=== PATIENT | female | born 1960 | race Caucasian/White ===

== ENCOUNTER → 2017-07-07 | Outpatient (CLI) | payer OTHER ==
--- NOTE | 2017-07-07 15:36 | RAD ---
DATE: 07/07/2017 EXAM: MAMMO DINA SCREENING BILATERAL Bilateral digital screening mammography to include digital breast tomosynthesis (3D mammography) HISTORY: Screening study. COMPARISON: 12/17/2014 This study was interpreted with the benefit of Computerized Aided Detection (CAD). The breast parenchyma shows scattered fibroglandular densities. Breast parenchyma level B. FINDINGS: Digital MLO and CC mammograms of both breasts were obtained. Additionally digital breast tomosynthesis (3D mammography) images of both breasts in the MLO and CC projections were performed. Comparison study is dated 12/17/2014. The breast parenchyma is composed of scattered fibroglandular densities which can obscure a lesion on mammography (breast density code B). No spiculated mass is seen. No malignant appearing calcification or area of architectural distortion is noted. Benign-appearing calcifications are seen within both breasts. Digital breast tomosynthesis images demonstrate no spiculated mass or malignant appearing calcification. Since the previous examination there has been no significant interval change. IMPRESSION: BI-RADS Category 1, negative. There is no mammographic evidence of malignancy. Routine yearly screening mammography is recommended for follow-up. BI-RADS CATEGORY: 1 NEGATIVE RECOMMENDED FOLLOW-UP: 12M 12 MONTH FOLLOW-UP PQRS compliance statement: Patient information was entered into a reminder system with a target due date 07/07/2018 for the next mammogram. Mammography is a sensitive method for finding small breast cancers, but it does not detect them all and is not a substitute for careful clinical examination. A negative mammogram does not negate a clinically suspicious finding and should not result in delay in biopsying a clinically suspicious abnormality. "Our facility is accredited by the [employer] Mammography Program."
== END | disposition home or self-care (01) ==
LOC: MAMMO 14:06
PROVIDERS: ATTEND Specialist
DX: Z12.31 Encounter for screening mammogram for malignant neoplasm of breast (principal)
CPT/HCPCS: 77063; G0202; 77067

== ENCOUNTER 2017-12-20 14:23 | Emergency (ER) | payer OTHER ==
[~2017-12-20] VITALS: Ht 152.4 cm; Wt 89.4 kg
[2017-12-20] MEDS ORDERED: IV NORMAL SALINE 1,000ML 1,000 ML IV SCH (15:00)
[2017-12-20] MEDS ORDERED: KETOROLAC 30 MG/ML VIAL. IV ONE (15:00)
[2017-12-20 15:01] LABS: BASO # 0.1 x10^3/uL (0.0-0.2); BASO % 1 % (0-3); EOS % 0 % (0-3); HEMATOCRIT 45.5 % (36.0-47.0); LYMPH # 0.8 x10^3/uL (1.0-4.8); LYMPH % 6 % (24-48); MEAN CORPUSCULAR HEMOGLOBIN 29 pg (25-35); MEAN CORPUSCULAR HGB CONC 33 g/dL (31-37); MEAN CORPUSCULAR VOLUME 88 fL (79-100); MONO # 0.9 x10^3/uL (0.0-1.1); MONO % 6 % (0-9); NEUT # 13.3 x10^3uL (1.8-7.7); NEUT % 88 % (31-73); PLATELET COUNT 300 x10^3/uL (140-400); RED CELL DISTRIBUTION WIDTH 13.6 % (11.5-14.5); WHITE BLOOD COUNT 15.2 x10^3/uL (4.0-11.0)
[2017-12-20 15:14] LABS: ALBUMIN 3.5 g/dL (3.4-5.0); ALBUMIN/GLOBULIN RATIO 0.9 (1.0-1.7); CREATININE 1.2 mg/dL (0.6-1.0); GFR 46.1; POTASSIUM 4.2 mmol/L (3.5-5.1); TOTAL BILIRUBIN 0.9 mg/dL (0.2-1.0); TOTAL PROTEIN 7.4 g/dL (6.4-8.2)
[2017-12-20 15:21] LABS: % BANDS 14 % (0-9); % LYMPHS 1 % (24-48); % MONOS 7 % (0-10); % SEGS 78 % (35-66)
[2017-12-20 15:23] LABS: PLT ESTIMATE ADEQUATE (ADEQUATE)
[2017-12-20 15:24] LABS: TOXIC GRANULATION SLIGHT; TOXIC VACUOLATION SLIGHT
[2017-12-20] MEDS ORDERED: IOHEXOL 240 MG/ML 50ML VIAL. ONE (15:43)
--- NOTE | 2017-12-20 15:52 | PHYS DOC ---
Past History Past Surgical History: Hysterectomy Smoking: Non-smoker Adult General Chief Complaint Chief Complaint: PELVIC PAIN HPI HPI 57-year-old female patient complaining of sharp pelvic. Therefore 2 AM as a constant pain with radiation to back that gradually getting worse. Patient rated her pain 8/10 and states the pain getting worse with movement. Patient complaining of nausea and anorexia without vomiting, diarrhea, fever and chills , urinary symptom. Patient states she had a bowel movement at noon without change of her pain and had flatus after that. Patient was seen by her primary care physician and had unremarkable pelvic and rectal exam and sent to ER for evaluation. Review of Systems Review of Systems Constitutional: Denies fever or chills [] Eyes: Denies change in visual acuity, redness, or eye pain [] HENT: Denies nasal congestion or sore throat [] Respiratory: Denies cough or shortness of breath [] Cardiovascular: No additional information not addressed in HPI [] GI: Reports abdominal pain, denies nausea, vomiting, bloody stools or diarrhea [ ] : Denies dysuria or hematuria [] Musculoskeletal: Denies back pain or joint pain [] Integument: Denies rash or skin lesions [] Neurologic: Denies headache, focal weakness or sensory changes [] Endocrine: Denies polyuria or polydipsia [] All other systems were reviewed and found to be within normal limits, except as documented in this note. Current Medications Current Medications Current Medications Medications (Trade) Dose Ordered Sig/Catrachito Start Time Stop Time Status Last Admin Dose Admin Ketorolac Tromethamine (Toradol) 30 mg 1X ONCE 12/20/17 15:00 12/20/17 15:01 DC 12/20/17 14:56 30 MG Sodium Chloride 1,000 ml @ 100 mls/hr Q10H 12/20/17 15:00 12/21/17 00:59 12/20/17 14:56 100 MLS/HR Allergies Allergies Allergies Coded Allergies Type Severity Reaction Last Updated Verified No Known Drug Allergies 12/20/17 No Physical Exam Physical Exam Constitutional: Well developed, well nourished, mild distress, non-toxic appearance. [] HENT: Normocephalic, atraumatic, bilateral external ears normal, oropharynx moist, no oral exudates, nose normal. [] Eyes: PERRLA, EOMI, conjunctiva normal, no discharge. [] Neck: Normal range of motion, no tenderness, supple, no stridor. [] Cardiovascular:Heart rate regular rhythm, no murmur [] Lungs & Thorax: Bilateral breath sounds clear to auscultation [] Abdomen: Bowel sounds normal, soft, right lower quadrant and suprapubic tenderness and guarding, no masses, no pulsatile masses. [] Skin: Warm, dry, no erythema, no rash. [] Back: No tenderness, no CVA tenderness. [] Extremities: No tenderness, no cyanosis, no clubbing, ROM intact, no edema. [] Neurologic: Alert and oriented X 3, normal motor function, normal sensory function, no focal deficits noted. [] Psychologic: Affect normal, judgement normal, mood normal. [] Current Patient Data Lab Results Laboratory Tests Test 12/20/17 14:48 White Blood Count 15.2 x10^3/uL (4.0-11.0) H Red Blood Count 5.20 x10^6/uL (3.50-5.40) Hemoglobin 15.0 g/dL (12.0-15.5) Hematocrit 45.5 % (36.0-47.0) Mean Corpuscular Volume 88 fL (79-100) Mean Corpuscular Hemoglobin 29 pg (25-35) Mean Corpuscular Hemoglobin Concent 33 g/dL (31-37) Red Cell Distribution Width 13.6 % (11.5-14.5) Platelet Count 300 x10^3/uL (140-400) Neutrophils (%) (Auto) 88 % (31-73) H Lymphocytes (%) (Auto) 6 % (24-48) L Monocytes (%) (Auto) 6 % (0-9) Eosinophils (%) (Auto) 0 % (0-3) Basophils (%) (Auto) 1 % (0-3) Neutrophils # (Auto) 13.3 x10^3uL (1.8-7.7) H Lymphocytes # (Auto) 0.8 x10^3/uL (1.0-4.8) L Monocytes # (Auto) 0.9 x10^3/uL (0.0-1.1) Eosinophils # (Auto) 0.0 x10^3/uL (0.0-0.7) Basophils # (Auto) 0.1 x10^3/uL (0.0-0.2) Segmented Neutrophils % 78 % (35-66) H Band Neutrophils % 14 % (0-9) H Lymphocytes % 1 % (24-48) L Monocytes % 7 % (0-10) Toxic Granulation Slight Toxic Vacuolation Slight Platelet Estimate Adequate (ADEQUATE) Large Platelets Occ Sodium Level 138 mmol/L (136-145) Potassium Level 4.2 mmol/L (3.5-5.1) Chloride Level 101 mmol/L (98-107) Carbon Dioxide Level 26 mmol/L (21-32) Anion Gap 11 (6-14) Blood Urea Nitrogen 15 mg/dL (7-20) Creatinine 1.2 mg/dL (0.6-1.0) H Estimated GFR (Cockcroft-Gault) 46.1 BUN/Creatinine Ratio 13 (6-20) Glucose Level 232 mg/dL (70-99) H Calcium Level 9.0 mg/dL (8.5-10.1) Total Bilirubin 0.9 mg/dL (0.2-1.0) Aspartate Amino Transferase (AST) 34 U/L (15-37) Alanine Aminotransferase (ALT) 55 U/L (14-59) Alkaline Phosphatase 123 U/L (46-116) H Total Protein 7.4 g/dL (6.4-8.2) Albumin 3.5 g/dL (3.4-5.0) Albumin/Globulin Ratio 0.9 (1.0-1.7) L Lipase 142 U/L (73-393) EKG EKG [] Radiology/Procedures Radiology/Procedures [] Course & Med Decision Making Course & Med Decision Making Pertinent Labs and Imaging studies reviewed. (See chart for details) Evaluation of patient in ER showed 57-year-old female patient with sudden onset of abdominal pain since this morning as a constant pain with nausea and anorexia. Patient had lower abdominal tenderness and rebound tenderness. Patient had leukocytosis and elevation of blood sugar without history of diabetes. CT of abdomen and pelvis showed small bowel obstruction with transition zone in the right lower quadrant. On-call surgeon at [facility] Dr Yoon was consulted at 1748 and recommended to transfer patient to [facility]. On-call hospitalist Dr. Hernández accepted transfer at 1755. Patient and her informed about plan of care and agreed with plan of care. [] Dragon Disclaimer Dragon Disclaimer This electronic medical record was generated, in whole or in part, using a voice recognition dictation system. Departure Departure: Impression: Primary Impression: Small bowel obstruction Additional Impressions: Hyperglycemia Abdominal pain Leukocytosis Disposition: XF [facility] ([facility] at 1755) Referrals: MAILE THOMPSON MD (PCP) Problem Qualifiers JOVITA ROSADO MD Dec 20, 2017 15:52
[2017-12-20] MEDS ORDERED: IOHEXOL 240 MG/ML 50ML VIAL. PO ONE (16:15)
[2017-12-20] MEDS ORDERED: IOHEXOL 300 MG/ML 75 ML VIAL. IV ONE (16:15)
[2017-12-20] MEDS ORDERED: CONTRAST GIVEN MC PRN (16:30)
[2017-12-20 16:49] LABS: AMORPHOUS SEDIMENT,UR PRESENT /HPF; BACTERIA,URINE FEW /HPF (0-FEW); BILIRUBIN,URINE NEG (NEG); CLARITY,URINE CLEAR; COLOR,URINE YELLOW; GLUCOSE,URINE NEG (NEG); NITRITE,URINE NEG (NEG); SQUAMOUS EPITHELIAL CELL,UR OCC /LPF; UROBILINOGEN,URINE 0.2 mg/dL (0.2 mg/dL)
--- NOTE | 2017-12-20 17:46 | RAD ---
Examination: CT of the abdomen pelvis with oral and IV contrast HISTORY: History of abdominal pain COMPARISON: None available TECHNIQUE: Axial CT images of the abdomen pelvis were performed with oral and IV contrast. Coronal and sagittal reformats are performed Exposure: One or more of the following individualized dose reduction techniques were utilized for this examination: 1. Automated exposure control 2. Adjustment of the mA and/or kV according to patient size 3. Use of iterative reconstruction technique FINDINGS: The bibasilar lungs are clear. No evidence of free air identified in the abdomen. There is diffuse reticular dimension noted throughout the liver likely steatosis The gallbladder is mildly distended The visualized spleen, adrenals grossly appears unremarkable The stomach is mildly distended. There are multiple dilated small bowel loops identified with the transition point in the right lower quadrant of the abdomen best visualized on coronal series 3 image 41. On series 2 image #67 there is a linear hyperdensity identified extending and abutting and possibly piercing the small bowel wall , could be a foreign body such as a chicken bone or fish bone or suture ( if there is history of surgery). However no extraluminal air visualized. The dilated small bowel loops are fluid distended measuring up to 2.8 cm. The distal small bowel loops appear collapsed Feces and gas noted in the colon The appendix is normal. Multiple sigmoid colon diverticulosis. Urinary bladder is mildly distended The bilateral kidneys enhance symmetrically. Moderate degenerative changes lumbar spine. There is mild anterolisthesis of L4 on L5. There is minimal retrolisthesis of L1 on L2. Impression: 1. Multiple dilated small bowel loops likely small bowel obstruction identified with a transition point in the right lower quadrant of the abdomen . On series 2 image #67 there is a linear hyperdensity identified extending and abutting and possibly piercing the small bowel wall , could be a foreign body such as a chicken bone or fish bone or suture ( if there is history of surgery). This appears to be the site of obstruction. However no extraluminal air visualized. 2. Multiple sigmoid colon diverticulosis. 3. Hepatic steatosis. Dr. Paez at [facility] was informed at time of dictation. Electronically signed by: Dany Bains MD (12/20/2017 5:43 PM) [facility]
[2017-12-20] MEDS ORDERED: MORPHINE SULFATE 4 MG/ML DISP.SYRIN. IV ONE (18:30)
[2017-12-20 19:12] VITALS: BP 125/81
== END 2017-12-20 20:05 | disposition home or self-care (01) ==
LOC: ER 14:23
DX: K56.699 Other intestinal obstruction unspecified as to partial versus complete obstruction (principal); R73.9 Hyperglycemia, unspecified; D72.829 Elevated white blood cell count, unspecified; Z90.710 Acquired absence of both cervix and uterus
CPT/HCPCS: 36415; 74177; 80053; 81001; 83690; 85007; 85025; 96361; 96374; 96375; 99285; J1885; J2270; Q9967; J7030

== ENCOUNTER → 2018-06-07 | Outpatient (CLI) | payer OTHER ==
[~2018-06-07] MED LIST: IOHEXOL 240 MG/ML 50ML VIAL. ONE; IOHEXOL 300 MG/ML 75 ML VIAL. IV ONE
--- NOTE | 2018-06-07 13:45 | RAD ---
EXAM: Abdomen and pelvis CT with intravenous contrast. HISTORY: Pain and cramping. TECHNIQUE: Computed tomographic images of the abdomen and pelvis were obtained following the administration of 75 cc Omnipaque 300 intravenous contrast. Multiplanar reformatting was performed. *One or more of the following individualized dose reduction techniques were utilized for this examination: 1. Automated exposure control. 2. Adjustment of the mA and/or kV according to patient size. 3. Use of iterative reconstruction technique. COMPARISON: 12/20/2017. FINDINGS: Evaluation of the lower thorax demonstrates no infiltrate or pleural effusion. The heart is normal in size. There is a 2.3 cm enhancing lesion within the hepatic dome. The gallbladder is unremarkable. There is suspected slight hepatic steatosis. There is a 10 mm mm hyperdense focus along the pancreatic head, likely due to radiodense material within a proximal duodenal diverticulum rather than pancreatic calcification. The spleen and adrenal glands are unremarkable. There is a suspected right extrarenal pelvis. There is no obstructive uropathy. There is no appendicitis. There is circumferential mucosal thickening involving the colon from the cecum to the mid transverse colon. There is surrounding pericolonic stranding. There are multiple enlarged pericecal lymph nodes, the largest of which measures 10 mm. There is sigmoid diverticulosis without convincing diverticulitis. The uterus is surgically absent. There is an infraumbilical fat-containing hernia extending into a ventral abdominal wall pannus. The hernia defect measures 6.5 cm and the hernia sac measures approximately 10.4 cm. There is grade 1 anterolisthesis of L4 on L5. There is severe degenerative endplate remodeling at L1-L2. There is superior endplate depression with Schmorl's node at L2. There are additional degenerative changes involving the lower and mid thoracic spine. There is no suspicious osseous lesion. IMPRESSION: 1. Acute colitis extending from the cecum to the mid transverse colon. The differential includes both infectious colitis as well as inflammatory bowel disease. There is several suspected reactive lymph nodes surrounding the cecum. 2. Stable enhancing lesion within the hepatic dome. This can be further assessed with a liver sonogram. 3. Distal colonic diverticulosis. 4. Fat-containing inferior ventral abdominal wall hernia. This is new compared to the study dated 12/20/2017. 5. Suspected slight hepatic steatosis. Electronically signed by: Lacey Nichols MD (06/07/2018 1:42 PM) [facility]
== END | disposition home or self-care (01) ==
LOC: CT 12:09
PROVIDERS: ATTEND Specialist
DX: K52.89 Other specified noninfective gastroenteritis and colitis (principal); K57.30 Diverticulosis of large intestine without perforation or abscess without bleeding; K43.9 Ventral hernia without obstruction or gangrene; K76.89 Other specified diseases of liver; E11.9 Type 2 diabetes mellitus without complications; Z90.710 Acquired absence of both cervix and uterus
CPT/HCPCS: 74177; Q9966; Q9967

== ENCOUNTER 2019-06-11 16:47 | Emergency (ER) | payer OTHER ==
[~2019-06-11] VITALS: Ht 152.4 cm; Wt 89.4 kg
--- NOTE | 2019-06-11 17:22 | PHYS DOC ---
Past History Past Medical History: Anxiety, Depression, Diabetes, GERD, Other (STEVEN HUSTON DO) Past Surgical History: Hysterectomy, Other Additional Past Surgical Histo: bilateral knee replacement, colon resection (STEVEN HUSTON DO) Smoking: Non-smoker Alcohol Use: None Drug Use: None (STEVEN HUSTON DO) Adult General Chief Complaint Chief Complaint: ANKLE PROBLEM HPI HPI Patient is a 59-year-old female presents with left ankle pain. Patient tripped and fell down approximately 6 steps at home that she was carrying a laundry basket. No loss of consciousness, no head injury. Increased pain with movement and weightbearing. This happened just before arrival. No home medicines have been taken. She has previous surgical history significant for bilateral knee surgeries. No numbness or tingling. Increased pain with movement. Pain is moderate to severe in intensity.[] (STEVEN HUSTON DO) Review of Systems Review of Systems Constitutional: Denies fever or chills [] Eyes: Denies change in visual acuity, redness, or eye pain [] HENT: Denies nasal congestion or sore throat [] Respiratory: Denies cough or shortness of breath [] Cardiovascular: No chest pain or palpitations[] GI: Denies abdominal pain, nausea, vomiting, bloody stools or diarrhea [] : Denies dysuria or hematuria [] Musculoskeletal: See history of present illness[] Integument: Denies rash or skin lesions [] Neurologic: Denies headache, focal weakness or sensory changes [] Endocrine: Denies polyuria or polydipsia [] All other systems were reviewed and found to be within normal limits, except as documented in this note. (STEVEN HUSTON DO) Allergies Allergies Allergies Coded Allergies Type Severity Reaction Last Updated Verified No Known Drug Allergies 12/20/17 No (STEVEN HUSTON DO) Physical Exam Physical Exam Constitutional: Well developed, well nourished, mild discomfort, non-toxic appearance. [] HENT: Normocephalic, atraumatic, bilateral external ears normal, oropharynx moist, no oral exudates, nose normal. [] Eyes: PERRLA, EOMI, conjunctiva normal, no discharge. [] Neck: Normal range of motion, no tenderness, supple, no stridor. [] Cardiovascular:Heart rate regular rhythm, no murmur [] Lungs & Thorax: Bilateral breath sounds clear to auscultation [] Abdomen: Bowel sounds normal, soft, no tenderness, no masses, no pulsatile masses. [] Skin: Warm, dry, no erythema, no rash. [] Back: No tenderness, no CVA tenderness. [] Extremities: Left ankle has diffuse tenderness to palpation. There is tenderness over the medial and lateral malleolus.The fifth metatarsal tenderness. Decreased active range of motion secondary to pain. Patient is distally neurovascularly intact. A joint above and joined below were evaluated and were normal. The other 3 extremities show: No tenderness, no cyanosis, no clubbing, ROM in tact, no edema. [] Neurologic: Alert and oriented X 3, normal motor function, normal sensory function, no focal deficits noted. [] Psychologic: Affect normal, judgement normal, mood normal. [] (STEVEN HUSTON DO) Current Patient Data Vital Signs Vital Signs Date Time Temp Pulse Resp B/P (MAP) Pulse Ox O2 Delivery O2 Flow Rate FiO2 06/11/19 16:53 98.1 91 18 97 (STEVEN HUSTON DO) EKG EKG [] (STEVEN HUSTON DO) Radiology/Procedures Radiology/Procedures PROCEDURE: ANKLE LEFT 3V ANKLE LEFT 3V 06/11/2019 4:54 PM INDICATION: Fall, swelling along the lateral malleolus COMPARISON: None available. TECHNIQUE: 3 views of the left ankle are provided. FINDINGS: There is an avulsion fracture from the lateral malleolus measuring 7 mm with associated soft tissue swelling along the lateral ankle. Tibial plafond and talar dome are intact. Tiny plantar calcaneal enthesophyte is present. Bone mineralization is within normal limits. Joint spaces are maintained. There is no soft tissue gas or osseous erosion. IMPRESSION: Avulsion fracture along the lateral malleolus measuring 7 mm with associated lateral soft tissue swelling.[] (STEVEN HUSTON DO) Course & Med Decision Making Course & Med Decision Making Pertinent Labs and Imaging studies reviewed. (See chart for details) ED course: Patient arrived, was placed in bed, and tolerated exam well. She was transported to and from radiology with any complications. After the return of the imaging findings, these were discussed with the patient. She voiced understanding. She was placed in a splint. She was distally neurovascularly intact after splint placement. She was discharged in improved condition with all questions answered. Medical decision making: Patient has an avulsion fracture of her left distal fibula. There is no evidence of an open fracture. No evidence of neurovascular compromise. No evidence of a fracture proximally or distally. Discussion with patient, she has an appointment with her orthopedic doctor, Dr. Milner, in 2 days.[] (STEVEN HUSTON DO) Course & Med Decision Making Impression: 1. Ankle sprain Lt. 2. Avulsion Fx/ Lt Distal neurovascular intact post splint. . - (PATTI MCMANUS MD) Dragon Disclaimer Dragon Disclaimer This electronic medical record was generated, in whole or in part, using a voice recognition dictation system. (STEVEN HUSTON DO) Departure Departure: Impression: Primary Impression: Closed fracture of left distal fibula Disposition: HOME, SELF-CARE Condition: IMPROVED Referrals: MAILE THOMPSON MD (PCP) Follow-up in 2 days Patient Instructions: Ankle Fracture, Cast or Splint Care, Crutch Use Additional Instructions: Follow-up with your regular doctor and the previously set orthopedic appointment in 2 days. Keep the splint clean and dry. No weightbearing with the left foot, ankle, or splint. Return to the ER if worsening pain, weakness, or any other concerns. Scripts Hydrocodone Bit/Acetaminophen (NORCO 5-325 TABLET) 1 Each Tablet 1 TAB PO Q4-6HRS for severe pain, #20 TAB Prov: STEVEN HUSTON DO 06/11/19 Meloxicam (MELOXICAM) 7.5 Mg Tablet 7.5 MG PO DAILY for PAIN, #20 TAB Prov: STEVEN HUSTON DO 06/11/19 Dragon Disclaimer This chart was dictated in whole or in part using Voice Recognition software in a busy, high-work load, and often noisy Emergency Department environment. It may contain unintended and wholly unrecognized errors or omissions. (PATTI MCMANUS MD) Problem Qualifiers Primary Impression: Closed fracture of left distal fibula Encounter type: initial encounter Fracture morphology: unspecified fracture morphology Qualified Codes: S82.832A - Other fracture of upper and lower end of left fibula, initial encounter for closed fracture STEVEN HUSTON DO Jun 11, 2019 17:22 PATTI MCMANUS MD Jun 11, 2019 18:20
--- NOTE | 2019-06-11 17:25 | RAD ---
ANKLE LEFT 3V 06/11/2019 4:54 PM INDICATION: Fall, swelling along the lateral malleolus COMPARISON: None available. TECHNIQUE: 3 views of the left ankle are provided. FINDINGS: There is an avulsion fracture from the lateral malleolus measuring 7 mm with associated soft tissue swelling along the lateral ankle. Tibial plafond and talar dome are intact. Tiny plantar calcaneal enthesophyte is present. Bone mineralization is within normal limits. Joint spaces are maintained. There is no soft tissue gas or osseous erosion. IMPRESSION: Avulsion fracture along the lateral malleolus measuring 7 mm with associated lateral soft tissue swelling. Electronically signed by: Denise Stephenson MD (06/11/2019 5:22 PM) [facility]
[2019-06-11] MEDS ORDERED: HYDR-3165 PO (17:38)
[2019-06-11] MEDS ORDERED: MELO7.5T29 PO (17:38)
[2019-06-11] MEDS ORDERED: ACETAMINOPHEN 325 MG TABLET PO ONE (17:45)
[2019-06-11] MEDS ORDERED: ONDANSETRON ODT 4 MG TAB.RAPDIS PO ONE (18:30)
[2019-06-11 18:45] VITALS: BP 118/71
== END 2019-06-11 18:45 | disposition home or self-care (01) ==
LOC: ER 16:47
DX: S82.832A Other fracture of upper and lower end of left fibula, initial encounter for closed fracture (principal); K21.9 Gastro-esophageal reflux disease without esophagitis; E11.9 Type 2 diabetes mellitus without complications; Z96.653 Presence of artificial knee joint, bilateral; W01.0XXA Fall on same level from slipping, tripping and stumbling without subsequent striking against object, initial encounter; Y93.89 Activity, other specified; Y92.89 Other specified places as the place of occurrence of the external cause; Y99.8 Other external cause status
CPT/HCPCS: 29515; 73610; 99284

== ENCOUNTER 2020-06-30 16:35 | Inpatient (IN) | payer OTHER ==
[~2020-06-30] VITALS: Ht 152.4 cm; Wt 90.2 kg
[~2020-06-30 16:35] MED LIST changes: +HYDR-3165 PO; -IOHEXOL 240 MG/ML 50ML VIAL. ONE; -IOHEXOL 300 MG/ML 75 ML VIAL. IV ONE; +MELO7.5T29 PO
[2020-06-30] MEDS ORDERED: ACETAMINOPHEN 500 MG TABLET PO ONE (16:45)
[2020-06-30] MEDS ORDERED: IV NORMAL SALINE 1,000ML 1,000 ML IV ONE ×2 (16:45)
--- NOTE | 2020-06-30 17:11 | EKG ---
[address] [address] Test Date: 2020-06-30 Test Time: 17:03:02 Pat Name: WALTER URENA Department: Room: Gender: F Inspector Floor Sub Assembly: : 1960 Requested By: YANELI WATSON Order Number: [id number] Reading MD: Measurements Intervals [place] Rate: 119 P: 46 VA: 174 QRS: -15 QRSD: 66 T: 49 QT: 296 QTc: 417 Interpretive Statements SINUS TACHYCARDIA LEFTWARD AXIS OTHERWISE NORMAL ECG RI6.02 No previous ECG available for comparison
--- NOTE | 2020-06-30 17:13 | PHYS DOC ---
Past History Past Medical History: Anxiety, Depression, Diabetes, GERD, Other Past Surgical History: Hysterectomy, Other Additional Past Surgical Histo: bilateral knee replacement, colon resection Smoking: Non-smoker Alcohol Use: None Drug Use: None Adult General Chief Complaint Chief Complaint: LOWER BACK PAIN OR INJURY [facility] HPI Patient is a 60-year-old female who presents with acute left lower back pain. Onset was 1 hour prior to arrival that awoke her from sleep. Nothing known makes better, IV morphine administered by EMS provided minimal relief. Twisting and bending movements make worse. Pain described as focal to left paralumbar muscle region, 10 out of 10 in severity during episodes or palpation without radiation. Timing of symptoms has been constant since onset. Patient denies any known inciting events, triggers or trauma. Patient has history of epidurals and other injections to back but nothing in recent years, denies any other concerning red flag signs or symptoms for back pain. Patient denies any prodromal symptoms prior to calling EMS today for transport here. No URI-like symptoms, no chest pain, no cough, no shortness of breath, no abdominal pain, no changes in urination or bowel control, no reported fever, no COVID-19 contacts. She denies any history of IV drug use Review of Systems Review of Systems Fourteen body systems of review of systems have been reviewed. See HPI for pertinent positives and negative responses, other aeson all other systems are negative, non-pertinent or non-contributory Current Medications Current Medications Current Medications Medications (Trade) Dose Ordered Sig/Catrachito Start Time Stop Time Status Last Admin Dose Admin Acetaminophen (Tylenol) 1,000 mg 1X ONCE 06/30/20 16:45 06/30/20 17:00 DC 06/30/20 17:06 1,000 MG Sodium Chloride 1,000 ml @ 1,000 mls/hr 1X ONCE 06/30/20 16:45 06/30/20 17:44 Allergies Allergies Allergies Coded Allergies Type Severity Reaction Last Updated Verified metformin Allergy Unknown 06/30/20 Yes Physical Exam Physical Exam Constitutional: Well developed, well nourished, moderate distress due to pain, non-toxic appearance. HENT: Normocephalic, atraumatic, bilateral external ears normal, oropharynx moist, no oral exudates, nose normal. Eyes: PERRLA, EOMI, conjunctiva normal, no discharge. Neck: Normal range of motion, no tenderness, supple, no stridor. Cardiovascular: Heart rate regular, sinus rhythm, no murmurs rubs or gallops Lungs & Thorax: Bilateral breath sounds clear to auscultation Abdomen: Bowel sounds normal, soft, no tenderness, no masses, no pulsatile masses. Nonsurgical abdomen, no peritoneal signs Skin: Warm, dry, no erythema, no rash. Back: Left CVA tenderness, no palpable abnormalities and/or step-offs of C, T, lumbar spine. Area of focal pain that is reproducible to left paralumbar muscle area around L2, no overlying skin abnormalities consistent with shingles Extremities: No tenderness, no cyanosis, no clubbing, ROM intact, no edema. Neurologic: Alert and oriented X 3, grossly normal motor & sensory function, no focal deficits noted. Psychologic: Affect normal, judgement normal, mood normal. Current Patient Data Vital Signs Vital Signs Date Time Temp Pulse Resp B/P (MAP) Pulse Ox O2 Delivery O2 Flow Rate FiO2 07/01/20 23:13 20 Room Air 07/01/20 22:20 99.5 118 20 133/88 (103) 91 Nasal Cannula 2.0 07/01/20 19:45 99.0 115 22 143/86 (105) 90 Nasal Cannula 2.0 07/01/20 19:00 Room Air 07/01/20 18:28 18 Room Air 07/01/20 17:43 18 Room Air 07/01/20 16:18 102.7 121 18 159/88 (111) 95 Nasal Cannula 3.5 07/01/20 11:08 99.9 110 20 147/90 (109) 94 Room Air 07/01/20 08:12 Room Air 07/01/20 05:51 99.5 107 18 178/80 (112) 94 Room Air 07/01/20 04:49 16 Room Air 07/01/20 04:19 18 Room Air 07/01/20 03:04 16 Room Air 07/01/20 01:45 18 Room Air 07/01/20 00:10 20 Room Air 07/01/20 00:01 Room Air 06/30/20 23:31 18 Room Air Lab Results Laboratory Tests Test 07/01/20 08:02 07/01/20 11:51 07/01/20 16:58 07/01/20 19:13 Glucose (Fingerstick) 164 mg/dL 156 mg/dL 140 mg/dL 141 mg/dL Current Medications Medications (Trade) Dose Ordered Sig/Catrachito Route PRN Reason Start Time Stop Time Status Last Admin Dose Admin Acetaminophen (Tylenol) 1,000 mg 1X ONCE PO 06/30/20 16:45 06/30/20 17:00 DC 06/30/20 17:06 Sodium Chloride 1,000 ml @ 1,000 mls/hr 1X ONCE IV 06/30/20 16:45 06/30/20 17:44 DC 06/30/20 17:05 Sodium Chloride 1,000 ml @ 1,000 mls/hr 1X ONCE IV 06/30/20 16:45 06/30/20 17:44 DC 06/30/20 17:55 Iohexol (Omnipaque 300 Mg/ml) 75 ml 1X ONCE IV 06/30/20 17:30 06/30/20 17:31 DC 06/30/20 18:15 Info (Do NOT chart on this entry -- for MONITORING) 1 each PRN DAILY PRN MC SEE COMMENTS 06/30/20 17:30 07/02/20 17:29 Fentanyl Citrate (Fentanyl 2ml Vial) 50 mcg 1X ONCE IVP 06/30/20 17:45 06/30/20 17:46 DC 06/30/20 17:39 Fentanyl Citrate (Fentanyl 2ml Vial) 100 mcg STK-MED ONCE .ROUTE 06/30/20 17:37 06/30/20 17:37 DC Fentanyl Citrate (Fentanyl 2ml Vial) 50 mcg 1X ONCE IVP 06/30/20 18:15 06/30/20 18:16 DC 06/30/20 18:12 Ceftriaxone Sodium 2 gm/ Sodium Chloride 100 ml @ 200 mls/hr 1X ONCE IV 06/30/20 19:00 06/30/20 19:29 DC 06/30/20 19:09 Azithromycin 500 mg/Sodium Chloride 250 ml @ 250 mls/hr 1X ONCE IV 06/30/20 19:00 06/30/20 19:59 DC 06/30/20 19:47 Ceftriaxone Sodium (Rocephin) 2 gm STK-MED ONCE IV 06/30/20 19:05 06/30/20 19:05 DC Sodium Chloride 100 ml @ As Directed STK-MED ONCE .ROUTE 06/30/20 19:05 06/30/20 19:05 DC Sodium Chloride 250 ml @ As Directed STK-MED ONCE .ROUTE 06/30/20 19:44 06/30/20 19:45 DC Azithromycin (Zithromax) 500 mg STK-MED ONCE IV 06/30/20 19:44 06/30/20 19:45 DC Fentanyl Citrate (Fentanyl 2ml Vial) 50 mcg PRN Q2HR PRN IVP PAIN 06/30/20 20:30 07/01/20 10:08 DC 07/01/20 08:12 EKG EKG EKG ordered and interpreted by myself at 1711 hrs. as sinus tachycardia at 119 bpm, unremarkable intervals, left axis deviation no fascicular blocks, no acute ischemic findings, no STEMI Radiology/Procedures Radiology/Procedures PROCEDURE: PORTABLE CHEST 1V PORTABLE CHEST 1V History: Severe back pain, shortness of air Comparison: None. Findings: Single view of the chest is submitted. There is opacity projecting over the left mediastinal region, uncertain if this is external or due to mediastinal pathology. Left heart border is also not entirely visualized. There are low lung volumes, suboptimal inspiration. There is no convincing pneumothorax. There is no right pleural fluid, difficult to accurately evaluate the left lung base. Impression: 1. There is opacity projecting over the left mediastinal region, cannot exclude mediastinal pathology although findings may be due to external artifact such as from the breast or soft tissues. Left heart border is also incompletely visualized, cannot exclude left base infiltrate on this exam. Electronically signed by: Jourdan Cunningham MD (06/30/2020 6:41 PM) [id number] PROCEDURE: CT ABD PELV W/ IV CONTRST ONLY Exam: CT of abdomen and pelvis with contrast INDICATION: Left flank pain TECHNIQUE: Sequential axial images through the abdomen and pelvis obtained following the administration of 59 mL of Isovue-370 IV contrast. Sagittal and coronal reformatted images were reconstructed from the axial data and reviewed. Comparisons: 06/07/2018 FINDINGS: Heart size is normal. No pericardial effusion. Strandy opacities at dependent portion lungs likely representing atelectasis. No pleural effusion. Liver, spleen, pancreas, gallbladder and adrenals are unremarkable. Kidneys demonstrate symmetric enhancement. No perinephric inflammation or hydronephrosis. No renal or ureteral calculi are identified. Bladder is partially distended and appears thin-walled. Uterus is absent. No abnormal adnexal mass. There is diverticulosis noted in the sigmoid colon without evidence of acute diverticulitis. Remainder of the large and small bowel are unremarkable. Appendix is not identified. No free intra-abdominal air or fluid. No obstruction. Abdominal aorta has a normal course and caliber. Abdominal vasculature is patent. No enlarged abdominal lymph nodes are identified. There is a moderate-sized infraumbilical midline fat-containing hernia at the anterior abdominal wall. No suspicious osseous lesions or acute fractures. IMPRESSION: 1. No renal or ureteral calculi. No evidence for obstructive uropathy. 2. Few diverticula at the sigmoid colon without evidence of acute diverticulitis. 3. Infraumbilical fat-containing hernia at the anterior abdominal wall. Exposure: One or more of the following in the visualized dose reduction techniques were utilized for this examination: 1. Automated exposure control 2. Adjustment of the MA and/or KV according to patient size 3. Use of iterative of reconstructive technique Electronically signed by: Meseret Larios MD (06/30/2020 6:46 PM) [id number] Course & Med Decision Making Course & Med Decision Making Patient seen on immediate ER arrival Airway patent, breathing unlabored, patient tachycardic, febrile, and hypotensive on arrival Comprehensive history and physical obtained, pertinent laboratory and imaging st udies ordered IV access obtained, aggressive IV fluid rehydration started. IV fentanyl given for pain. P.o. Tylenol for fever Diagnostic work-up unclear. IV antibiotics started for suspect infection but also to cover for less likely spinal abscess and febrile patient with intractable back pain Case discussed with on-call hospitalist, Dr. Jones, who agreed for admission and continued medical care Discussed with patient that although there were no emergent/surgical findings this ER visit, she would benefit from continued medical therapy in an inpatient setting, she agreed to admission All questions and concerns addressed prior to ER departure to [facility] for inpatient admission and continued medical care Dragon Disclaimer Dragon Disclaimer This electronic medical record was generated, in whole or in part, using a voice recognition dictation system. Departure Departure: Impression: Primary Impression: Intractable low back pain Additional Impression: Fever Disposition: ADMITTED INPATIENT Admitting Physician: Óscar Jones Condition: STABLE Referrals: MAILE THOMPSON MD (PCP) Justification of Admission: Justification of Admission: Justification of Admission Dx: Yes Sepsis: Dehydration Problem Qualifiers YANELI WATSON DO Jun 30, 2020 17:13
[2020-06-30 17:23] LABS: BASO # 0.1 x10^3/uL (0.0-0.2); BASO % 1 % (0-3); EOS # 0.1 x10^3/uL (0.0-0.7); EOS % 1 % (0-3); HEMATOCRIT 47.8 % (36.0-47.0); HEMOGLOBIN 15.6 g/dL (12.0-15.5); LYMPH # 1.1 x10^3/uL (1.0-4.8); LYMPH % 7 % (24-48); MEAN CORPUSCULAR HEMOGLOBIN 29 pg (25-35); MEAN CORPUSCULAR HGB CONC 33 g/dL (31-37); MEAN CORPUSCULAR VOLUME 89 fL (79-100); MONO # 1.4 x10^3/uL (0.0-1.1); MONO % 9 % (0-9); NEUT # 13.4 x10^3uL (1.8-7.7); NEUT % 83 % (31-73); PLATELET COUNT 328 x10^3/uL (140-400); RED CELL DISTRIBUTION WIDTH 13.8 % (11.5-14.5); WHITE BLOOD COUNT 16.2 x10^3/uL (4.0-11.0)
[2020-06-30] MEDS ORDERED: IOHEXOL 300 MG/ML 75 ML VIAL. IV ONE (17:30)
[2020-06-30] MEDS ORDERED: CONTRAST GIVEN. MC PRN (17:30)
[2020-06-30 17:40] LABS: CALCIUM 9.3 mg/dL (8.5-10.1); CREATININE 1.1 mg/dL (0.6-1.0); GFR 50.5; POTASSIUM 4.1 mmol/L (3.5-5.1)
[2020-06-30 17:45] LABS: ALBUMIN 3.5 g/dL (3.4-5.0); ALBUMIN/GLOBULIN RATIO 0.9 (1.0-1.7); TOTAL BILIRUBIN 0.9 mg/dL (0.2-1.0); TOTAL PROTEIN 7.6 g/dL (6.4-8.2)
[2020-06-30 17:58] LABS: % EOS 1 % (0-5); % LYMPHS 6 % (24-48); % MONOS 6 % (0-10); % SEGS 84 % (35-66); PLT ESTIMATE ADEQUATE (ADEQUATE)
[2020-06-30 18:44] LABS: BILIRUBIN,URINE NEG (NEG); CLARITY,URINE HAZY; COLOR,URINE YELLOW; GLUCOSE,URINE NEG (NEG)
--- NOTE | 2020-06-30 18:44 | RAD ---
PORTABLE CHEST 1V History: Severe back pain, shortness of air Comparison: None. Findings: Single view of the chest is submitted. There is opacity projecting over the left mediastinal region, uncertain if this is external or due to mediastinal pathology. Left heart border is also not entirely visualized. There are low lung volumes, suboptimal inspiration. There is no convincing pneumothorax. There is no right pleural fluid, difficult to accurately evaluate the left lung base. Impression: 1. There is opacity projecting over the left mediastinal region, cannot exclude mediastinal pathology although findings may be due to external artifact such as from the breast or soft tissues. Left heart border is also incompletely visualized, cannot exclude left base infiltrate on this exam. Electronically signed by: Jourdan Cunningham MD (06/30/2020 6:41 PM) [facility]
[2020-06-30 18:45] LABS: BACTERIA,URINE MOD /HPF (0-FEW); NITRITE,URINE NEG (NEG); RBC,URINE OCC /HPF (0-2); SQUAMOUS EPITHELIAL CELL,UR FEW /LPF; UROBILINOGEN,URINE 0.2 mg/dL (0.2 mg/dL); WBC,URINE OCC /HPF (0-4)
--- NOTE | 2020-06-30 18:49 | RAD ---
Exam: CT of abdomen and pelvis with contrast INDICATION: Left flank pain TECHNIQUE: Sequential axial images through the abdomen and pelvis obtained following the administration of 59 mL of Isovue-370 IV contrast. Sagittal and coronal reformatted images were reconstructed from the axial data and reviewed. Comparisons: 06/07/2018 FINDINGS: Heart size is normal. No pericardial effusion. Strandy opacities at dependent portion lungs likely representing atelectasis. No pleural effusion. Liver, spleen, pancreas, gallbladder and adrenals are unremarkable. Kidneys demonstrate symmetric enhancement. No perinephric inflammation or hydronephrosis. No renal or ureteral calculi are identified. Bladder is partially distended and appears thin-walled. Uterus is absent. No abnormal adnexal mass. There is diverticulosis noted in the sigmoid colon without evidence of acute diverticulitis. Remainder of the large and small bowel are unremarkable. Appendix is not identified. No free intra-abdominal air or fluid. No obstruction. Abdominal aorta has a normal course and caliber. Abdominal vasculature is patent. No enlarged abdominal lymph nodes are identified. There is a moderate-sized infraumbilical midline fat-containing hernia at the anterior abdominal wall. No suspicious osseous lesions or acute fractures. IMPRESSION: 1. No renal or ureteral calculi. No evidence for obstructive uropathy. 2. Few diverticula at the sigmoid colon without evidence of acute diverticulitis. 3. Infraumbilical fat-containing hernia at the anterior abdominal wall. Exposure: One or more of the following in the visualized dose reduction techniques were utilized for this examination: 1. Automated exposure control 2. Adjustment of the MA and/or KV according to patient size 3. Use of iterative of reconstructive technique Electronically signed by: Meseret Larios MD (06/30/2020 6:46 PM) [id number]
[2020-06-30] MEDS ORDERED: AZITHROMYCIN 500 MG in IV NORMAL SALINE 250ML 250 ML IV ONE (19:00)
[2020-06-30] MEDS ORDERED: IV NORMAL SALINE 100ML 100 ML ONE (19:05)
[2020-06-30] MEDS ORDERED: IV NORMAL SALINE 250ML 250 ML ONE (19:44)
[2020-06-30] MEDS ORDERED: AZITHROMYCIN 500 MG VIAL. IV ONE (19:44)
--- NOTE | 2020-06-30 20:18 | RAD ---
CT LUMBAR SPINE WO CONTRAST Indication: Severe back pain, febrile Technique: Noncontrast CT imaging was performed of the lumbar spine, multiplanar reconstruction images submitted. One or more of the following individualized dose reduction techniques were utilized for this examination: 1. Automated exposure control 2. Adjustment of the mA and/or kV according to patient size 3. Use of iterative reconstruction technique. Comparison: June 07, 2018 CT abdomen pelvis exam Findings: There is again grade 1 anterior spondylolisthesis at L4-5 at which there is facet degenerative change. There is again advanced degenerative disc disease at L1-L2 and L4-5 and to a lesser degree at L3-4, minimally at L2-3 and L5-S1. Vertebral body stature is similar, again superior Schmorl's node of L2. There is again disc osteophyte complex at L1-L2 indenting the ventral thecal sac and likely at least mild narrowing of the far lateral recesses bilaterally. There is also likely at least [id number] narrowing the far lateral recesses bilaterally at L4-5. There is [id number] left and at least moderate distal right L4-5 neural foramina compromise, also likely [id number] narrowing on the right at L1-L2. No acute lumbar spine fracture is identified. There is multilevel facet degenerative change greater inferiorly. IMPRESSION: 1. Findings are similar by CT, again advanced degenerative disc disease greatest at L1-L2 and L4-5 and to lesser degree at other levels. There is again grade 1 anterior spondylolisthesis L4-5, facet degenerative change greater inferiorly of the lumbar spine. There is variable lumbar neural foramina compromise as stated. There is degree of lateral recess stenosis greatest bilaterally at L4-5 and L1-2. Electronically signed by: Jourdan Cunningham MD (06/30/2020 8:16 PM) [facility]
[2020-06-30 22:50] VITALS: BP 108/73
[2020-06-30] MEDS ORDERED: OMEP40CA45 PO (23:43)
[2020-06-30] MEDS ORDERED: MESA0.372 PO (23:43)
[2020-06-30] MEDS ORDERED: SAXA5TAB PO (23:43)
[2020-06-30] MEDS ORDERED: DULA1.5P SQ (23:43)
[2020-06-30] MEDS ORDERED: DULO60CA98 PO (23:43)
[2020-06-30] MEDS ORDERED: SPIR50TA4 PO (23:43)
[2020-06-30] MEDS ORDERED: DOXE25CA PO (23:43)
--- NOTE | 2020-07-01 00:50 | NUR ---
The patient, WALTER URENA, 60 y/o, F admitted by JARAD RASHEED MD, was given written information regarding hospital policies, unit procedures and contact persons. Valuables were checked and noted. PT presented with back pain, unable to be controlled at home. PT admitted for intractable back pain. PT screams when moved. PT has been incontinent of urine here. PT refuses to try to go to bathroom or use a bedpan. PT can be noncompliant when trying to change and turn to one side. PT will twist and flip herself to the opposite side and scream that "it hurts" but will then move herself on the same side that "hurt" minutes before with no signs of pain. When PT is distracted, she will breathe normal, talk normal.
[2020-07-01 05:51] VITALS: BP 178/80
--- NOTE | 2020-07-01 10:30 | NUR ---
NURSING NOTE PAIN UNCONTROLLED PAIN UNCONTROLLED. DC FENTANYL 50MCG, NEW ORDER FOR FENTANYL 100MCG PER DR RASHEED. WILL CONTINUE TO MONITOR. GEORGE PATEL.
[2020-07-01 11:08] VITALS: BP 147/90
--- NOTE | 2020-07-01 11:28 | NUR ---
NURSING NOTE PER DR RASHEED, SWITCH ORDER TO TELEMETRY ADMIT INSTEAD OF MED/SURG. PT PAIN LEVEL IS STILL UNCONTROLLED. DC FENTANYL 100, ORDER OBTAINED DILAUDID 2MG IV [id number]. WILL CONTINUE TO MONITOR. GEORGE PATEL.
[2020-07-01] MEDS ORDERED: HYDROmorphone PF 2 MG/ML VIAL IVP PRN (11:30)
[2020-07-01] MEDS: LINAGLIPTIN 5 MG TABLET PO SCH (12:00)
--- NOTE | 2020-07-01 12:02 | HP ---
ADMIT DATE: 07/01/2020 ATTENDING PHYSICIAN: Dr. Rasheed. CHIEF COMPLAINT: Severe low back pain. HISTORY OF PRESENT ILLNESS: The patient is a 60-year-old female admitted through the ED with severe incapacitating low back pain, right sided, radiating into her buttocks. She denied any recent injury. She has medical issues including anxiety, depression, diabetes, and gastroesophageal reflux disease. She has had previous bilateral knee replacement. No recent trauma or falls. She was seen in the ED, quite uncomfortable, incapacitating, unable to walk or bear weight. In the ED, she had imaging studies done including a chest x-ray, which was no significant pathology. There is a questionable opacity projecting over the left mediastinal region, cannot exclude mediastinal pathology. This will be followed up. She had an abdominopelvic CT scan, which showed no evidence of renal calculi, no obstructive uropathy, infraumbilical fat-containing hernias in the anterior abdominal wall. No obstruction identified. No enlargement of nodes, no acute process ongoing. CT of the lumbar spine shows severe degeneration. There is grade 1 anterior spondylolisthesis at L4-L5. There is facet degenerative disk disease at L1-L2 and L4-S5 to a lesser degree at L3-L4, minimally L2-L3 and L5-S1. Vertebral body stature is similar. She had a Schmorl's node. There is disk osteophyte complex at L1-L2 indenting the ventral thecal sac and narrowing of the lateral recesses bilaterally. Findings are similar by CT; the previous scan, advanced degenerative disk disease, greatest at L1-L2 and L4-L5. There is a variable lumbar neuroforaminal compromise. There is no spinal cord stenosis at this time. The patient is admitted then with intractable low back pain refractory to outpatient care. PAST MEDICAL HISTORY: Gleaned from the old chart. She has anxiety, depression, diabetes, obesity, and gastroesophageal reflux disease. PAST SURGICAL HISTORY: She has had a previous hysterectomy, bilateral knee replacement, and a colon resection; exact diagnosis unclear. CURRENT MEDICATIONS: Reviewed. She was on scheduled doxepin 25 mg at bedtime, Trulicity weekly, Cymbalta 120 mg daily, mesalamine 4 capsules daily, omeprazole, Onglyza, and Aldactone. I do not find any documented record of inflammatory bowel disease. SOCIAL HISTORY: She is a nonsmoker, nondrinker. FAMILY HISTORY: Noncontributory. REVIEW OF SYSTEMS: Significant for the severe pain localized, incapacitating. She is crying. She is incontinent of urine. She is not wanting to make any effort to move that hurts. Her threshold for pain indeed is minimal. She is somewhat nauseated, all other systems were reviewed and determined to be negative. PHYSICAL EXAMINATION: GENERAL: When I saw her, this is a middle-aged female who is quite uncomfortable from said pain. INITIAL VITAL SIGNS: Showed a blood pressure of 147/90, temperature 99.5 degrees Fahrenheit, pulse was 107 and regular, oxygen saturation 94% on room air. HEENT: Head is without trauma. Pupils are reactive. Sclerae are nonicteric. Oropharynx is clear. NECK: Supple, no bruits identified. LUNGS: Otherwise clear. CARDIOVASCULAR: Showed distant heart tones. No gallops. Peripheral pulses are palpable and full. ABDOMEN: Obese, protuberant. No organomegaly. Bowel sounds are hypoactive. EXTREMITIES: Showed no cyanosis. She has significant tenderness to palpation over the paraspinous muscles of the right lumbar spine. NEUROLOGIC: Focally intact. Speech is fluent. She is nonambulatory at this time. SKIN: Warm and dry. PERTINENT LABORATORY STUDIES: Admission hemoglobin 15.6 gram/deciliter, white count 16,200. Her electrolytes are within normal range. Creatinine is 1.1 mg percent, nonfasting blood sugar 164. ASSESSMENT: 1. A 60-year-old female with intractable low back pain, right lumbar region. 2. Severe degenerative disk disease. Repeat CT scan confirmed previous CT scan reports. 3. Type 2 diabetes mellitus. 4. Opacity over the mediastinal region, pneumonia cannot be ruled out. 5. Essential hypertension. 6. Probable irritable bowel syndrome. 7. Questionable history of inflammatory bowel disease. 8. Underlying depression with anxiety. PLAN: 1. Admit to the inpatient unit. 2. Pain control, initially fentanyl was ordered. dose is increased. She is not getting relief. I switched her over to intravenous hydromorphone for pain control. 3. Diet as tolerated. 4. Accu-Cheks. 5. Continue home meds. 6. At some time, if symptoms are not improved with bedrest and pain control, she may be a candidate for epidural steroid injection. JARAD RASHEED MD DR: JAVIER/hardy JOB#: [id number] / [id number]
[2020-07-01] MEDS: DULoxetine HCL 60 MG CAPSULE.DR PO SCH (12:21)
--- NOTE | 2020-07-01 12:28 | NUR ---
NURSING NOTE PAIN MEDICATION PT WAS LETHARGIC WHEN REASSESSING HER PAIN, UNABLE TO STAY AWAKE, DR RASHEED AT BEDSIDE, PT STATES SHE DOES HAVE PAIN RELIEF. ORDER FOR DILAUDID CHANGED TO DILAUDID 1MG OR 2MG NEEDED FOR PAIN. GEORGE PATEL.
--- NOTE | 2020-07-01 15:17 | NUR ---
NURSING NOTE TEMP 102 AND O2 SAT DECREASED. PT PLACED ON 2 LITERS, ORDER OBTAINED FOR TYLENOL 1000MG Q6HRS. GEORGE PATEL.
[2020-07-01] MEDS: ACETAMINOPHEN 500 MG TABLET PO PRN (15:25)
--- NOTE | 2020-07-01 15:44 | NUR ---
NURSING NOTE PT OXYGEN LEVEL 94-96% ON 2L, PRN TYLENOL GIVEN PER DR RASHEED FOR TEMP. COMMUNICATIONS OFFICER JELANI AT BEDSIDE TO HELP REPOSITION PT. WILL CONTINUE TO MONITOR. GEORGE PATEL.
--- NOTE | 2020-07-01 15:51 | NUR ---
NURSING NOTE SPOKE WITH DR RASHEED TO UPDATE ABOUT PT, ORDER OBTAINED FOR NS AT 60MLS/HR. NOTHING FURTHER AT THIS TIME NEEDED. WILL CONTINUE TO MONITOR. GEORGE PATEL.
[2020-07-01] MEDS: IV NORMAL SALINE 1,000ML 1,000 ML IV SCH (16:00)
[2020-07-01 16:18] VITALS: BP 159/88
[2020-07-01] MEDS: HYDROmorphone PF 2 MG/ML VIAL IVP PRN ×2 (17:43→23:13)
[2020-07-01 19:45] VITALS: BP 143/86
[2020-07-01] MEDS ORDERED: NON FORMULARY ITEM (Omeprazole 1 CAP) PO SCH (21:00)
[2020-07-01] MEDS: AZITHROMYCIN 500 MG in IV NORMAL SALINE 250ML 250 ML IV SCH (21:00)
[2020-07-01] MEDS: DOXEPIN HCL 25 MG CAPSULE PO SCH (21:30)
[2020-07-01 22:20] VITALS: BP 133/88
[2020-07-02] MEDS: HYDROmorphone PF 2 MG/ML VIAL IVP PRN ×6 (04:16→21:37)
[2020-07-02 05:11] VITALS: BP 151/78
[2020-07-02] MEDS: LINAGLIPTIN 5 MG TABLET PO SCH (07:21)
[2020-07-02] MEDS: DULoxetine HCL 60 MG CAPSULE.DR PO SCH (07:21)
--- NOTE | 2020-07-02 08:26 | NUR ---
PATIENT REQUESTED PAIN MEDS THIS AM. PATIENT WAS ASSESSED, PT STATED HER PAIN LEVEL IS 10/10. PT HAD DILAUDID 1 MG ORDERED, PATIENT PUSHED THE CALL LIGHT 10 MIN LATER, CT MEDEIROS TALKED TO THE PATIENT, PATIENT REPORTED TO DIRECTOR OF PURCHASING THAT SHE NEEDED HER PAIN MEDICINE. DIRECTOR OF PURCHASING REPLIED THAT RN JUST GAVE IT TO HER. PATIENT REPLIED THAT SHE DID NOT GET HER PAIN MEDICATION YET. DIRECTOR OF PURCHASING REPORTED THIS CONVERSATION TO THIS RN. PATIENT WAS REASSESSED, PT WAS INSTRUCTED TO USE OTHER PAIN MANAGEMENT TECHNIQUES SUCH DEEP BREATHING, RELAXATION. WILL CONTINUE TO MONITOR.
[2020-07-02] MEDS: MESALAMINE PO SCH (09:00)
[2020-07-02] MEDS ORDERED: SAXAGLIPTIN HCL PO SCH (09:00)
[2020-07-02] MEDS: IV NORMAL SALINE 1,000ML 1,000 ML IV SCH (09:10)
[2020-07-02] MEDS: ACETAMINOPHEN 500 MG TABLET PO PRN (10:30)
[2020-07-02 10:44] VITALS: BP 150/80
[2020-07-02 13:23] LABS: HEMATOCRIT 43.1 % (36.0-47.0); HEMOGLOBIN 13.8 g/dL (12.0-15.5); RED BLOOD COUNT 4.79 x10^6/uL (3.50-5.40); RED CELL DISTRIBUTION WIDTH 14.1 % (11.5-14.5); WHITE BLOOD COUNT 18.9 x10^3/uL (4.0-11.0)
--- NOTE | 2020-07-02 14:21 | RAD ---
EXAM: CT Chest without IV contrast INDICATION: Reason: ABNORMAL FINDING ON CHEST XRAY, which was obtained for severe back pain and shortness of air. An opacity was observed over the left mediastinal region on chest x-ray. TECHNIQUE: Multi-detector row CT images were acquired from the thoracic inlet through the upper abdomen without the use of IV contrast. Sagittal and coronal images were acquired from the transaxial data. All CT scans performed at this facility utilize dose optimization techniques as appropriate to the exam, including the following: Automated exposure control and adjustment of the mA and/or KV according to patient size (this includes techniques or standardized protocols for targeted exams where dose is indication/reason for exam). COMPARISON: Chest x-ray 06/30/2020 FINDINGS: There is some respiratory motion artifact The absence of IV contrast limits evaluation of soft tissue pathology. CARDIOVASCULAR: Unremarkable MEDIASTINUM & RAJNI: No adenopathy or masses. The patient's distal trachea at the joey is narrowed in AP diameter to 4 mm in this supine position. LUNGS: Minimal subsegmental atelectatic changes in the lingula. Otherwise no pulmonary infiltrate, nodule, or other focal abnormality. PLEURAL SPACE: No pleural effusions or pneumothorax. OSSEOUS & SOFT TISSUE: Bones are unremarkable. Patient has large breasts bilaterally. ABDOMEN: The visualized portions of the upper abdomen are unremarkable. IMPRESSION: 1. No mediastinal mass. The opacity noted on earlier chest x-ray likely represents artifact of overlap of the patient's large, pendulous breasts. 2. CT findings of possible tracheobronchomalacia. Electronically signed by: Michael Lira MD (07/02/2020 2:18 PM) [id number]
[2020-07-02 15:15] VITALS: BP 119/77
--- NOTE | 2020-07-02 17:57 | PN ---
DATE: 07/02/2020 SUBJECTIVE: The patient is a 60-year-old female patient who was admitted with sudden onset of severe left paralumbar muscle region that she rated as 10/10 in severity. 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 She was evaluated in the Emergency Room and had had a CT scan of the lumbar spine, which showed that she has findings similar by CT scan; again advanced degenerative disk disease, greatest at L1-L2 and L4-L5 and to a lesser degree at other levels. There is again grade 1 anterior spondylolisthesis at L4-L5, facet degenerative changes greater inferiorly of the lumbar spine. There is variable lumbar neural foramina compromise as stated. There is a degree of lateral recess stenosis, greatest bilaterally at L4-L5 and L1-L2. She was admitted for pain management and was basically started on IV antibiotics. She has fever as well as leukocytosis. She was also started on hydromorphone and continued on her other medications including Trulicity as well as mesalamine and Tradjenta. When I saw her this afternoon, she was sitting on the edge of the bed, clearly somewhat restless, very confused, was not able to give me any useful information. PHYSICAL EXAMINATION: GENERAL: She was pale, but no jaundice, cyanosis or thyromegaly. No jugular venous distention. No limb edema. VITAL SIGNS: Her heart rate was 125, blood pressure was 150/80, temperature was 100.3, respiratory rate was 20 and oxygen saturation was 92% on 3 liters of oxygen. HEAD, EYES, EARS, NOSE AND THROAT: Showed normocephalic, atraumatic. NECK: Supple. HEART: Showed normal first and second heart sounds. No gallop, rub or murmur. CHEST: Showed central trachea, equal bilateral expansion, air entry. I could not really appreciate any crepitation or rhonchi. ABDOMEN: Distended, soft, nontender. NEUROLOGIC: She is awake, alert, but very confused, was unable to answer practically any questions; however, all her cranial nerves seem to be intact. She moves extremities without difficulty, but she clearly is restless and trying to get a comfortable position. Her intake over the last 24 hours was 3115, no output was recorded. LABORATORY DATA: As of yesterday showed a serum sodium 139, potassium 4.1, chloride 102, bicarbonate 28, anion gap of 9, BUN 13, creatinine 1.1, estimated GFR was 50 mL per minute. Her glucose 141, calcium was 9.3. Total bilirubin, AST, ALT, alkaline phosphatase slightly elevated. Her C-reactive protein was 58.5. Total protein was 7.6, albumin was 3.5. Her white cell count was 16,200, hemoglobin 15, hematocrit 48, MCV 89 and platelet count of 328,000. Urinalysis essentially unremarkable. Urine culture has grown less than 10,000 units of normal genitourinary ana luisa and her blood cultures still is negative with no growth after 1 day. PLAN: I have arranged for her to have a CT scan of the chest without contrast as she has some abnormal finding on her chest x-ray. It says that there is an opacity projecting over the left mediastinal region, cannot exclude mediastinal pathology, although finding may be due to external artifact such as from the breasts or soft tissue. Left heart border is also incompletely visualized, cannot exclude left base infiltrate on this exam. We will continue with pain management. I also arranged for a total body bone scan. Meanwhile, we will continue to monitor her blood sugar and I repeated all her labs stat this afternoon. I spoke with her daughter and transpired that she is known to have type 2 diabetes mellitus. She has also obstructive sleep apnea, on CPAP. She has diverticulosis, but no diverticulitis as well as neurodermatitis and normally she is at home. 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 KEELY NEGRO MD DR: EVERT/hardy JOB#: [id number] / [id number]
[2020-07-02 19:06] VITALS: BP 123/88
[2020-07-02] MEDS: LACTOBACILLUS RHAMNOSUS GG 1 CAPSULE. PO SCH (21:00)
[2020-07-02] MEDS: AZITHROMYCIN 500 MG in IV NORMAL SALINE 250ML 250 ML IV SCH (21:06)
[2020-07-02] MEDS: DOXEPIN HCL 25 MG CAPSULE PO SCH (21:06)
[2020-07-02 22:46] VITALS: BP 157/99
[2020-07-03] MEDS: IV NORMAL SALINE 1,000ML 1,000 ML IV SCH (01:20)
[2020-07-03] MEDS: HYDROmorphone PF 2 MG/ML VIAL IVP PRN (03:31)
--- NOTE | 2020-07-03 03:36 | NUR ---
When rounding on pt at 0300, pt calling out "help me." Pt thrashing in the bed from side to side. Pt reports she needs to urinate. Pt refusing assistance to BSC. Pt also declined bedpan. Attempted to assist pt x2 assist to sit on bedside. Pt able to voice understanding of directions but then proceeding to resist, pulling away from staff and refusing to follow instructions. Took several attempts to get patient to sit on bedside, with patient constantly trying to lay back in bed. Pt then urinated on bed. Required x4 assist to change linens and brief. After much encouragement, pt stood with walker and took several steps to the top of the bed to lay down. Pt c/o 10:10 lower back pain. PRN Dilaudid 2mg IVP given as indicated. Pt now resting in bed, positioned self on her left side. Call light in reach.
[2020-07-03 06:26] VITALS: BP 172/77
[2020-07-03 07:08] LABS: HEMATOCRIT 38.1 % (36.0-47.0); HEMOGLOBIN 12.4 g/dL (12.0-15.5); RED BLOOD COUNT 4.33 x10^6/uL (3.50-5.40); RED CELL DISTRIBUTION WIDTH 13.6 % (11.5-14.5); WHITE BLOOD COUNT 15.1 x10^3/uL (4.0-11.0)
[2020-07-03 07:42] LABS: ALBUMIN 2.7 g/dL (3.4-5.0); ALBUMIN/GLOBULIN RATIO 0.6 (1.0-1.7); CALCIUM 8.7 mg/dL (8.5-10.1); CREATININE 1.1 mg/dL (0.6-1.0); GFR 50.5; POTASSIUM 4.2 mmol/L (3.5-5.1); TOTAL BILIRUBIN 0.6 mg/dL (0.2-1.0)
--- NOTE | 2020-07-03 08:14 | NUR ---
NURSING NOTE PT WAS FOUND BY CT ELLIS ROLLING AROUND IN THE BED LAYING ACROSS THE FOOT OF THE BED AGAINST THE FOOT BOARD WITH HER HEAD LAYING OVER THE ONE SIDE AND HER FEET LAYING OVER THE OTHER. THIS NURSE WAS CALLED TO HELP ASSIST. PT WAS REFUSING TO MOVE BACK INTO THE BED PROPERLY, THIS NURSE OFFERED TO GET A KRYSTIAN LIFT AND MECHANICALLY PICK HER UP TO MOVE HER, PT THEN BEGAN ROLLING UP TOWARDS THE TOP OF THE BED AND AFTER SEVERAL MINUTES, WAS ABLE TO SCOOT HERSELF UP IN THE BED WITHOUT ANY PROBLEM. AFTER PT WAS DONE MOVING, PT BEGAN MOANING. THIS NURSE ASKED PT HOW HER PAIN WAS AND PT WILL STATE "IM FINE" BUT THEN MOAN IN PAIN AND SAY SHE IS HURTING ALL OVER. PT CURRENTLY LAYING DOWN IN BED, BED ALARM PLACED. PT WAS A&OX2 THIS AM TO SELF AND PLACE, UN-ORIENTED TO DATE AND TIME. GEORGE PATEL.
[2020-07-03] MEDS: MESALAMINE PO SCH (08:27)
[2020-07-03] MEDS: LINAGLIPTIN 5 MG TABLET PO SCH (09:00)
[2020-07-03 10:05] VITALS: BP 146/93
[2020-07-03] MEDS: ACETAMINOPHEN 500 MG TABLET PO PRN (10:15)
[2020-07-03] MEDS: DULoxetine HCL 60 MG CAPSULE.DR PO SCH (10:15)
[2020-07-03] MEDS: LACTOBACILLUS RHAMNOSUS GG 1 CAPSULE. PO SCH (10:15)
--- NOTE | 2020-07-03 10:36 | NUR ---
NURSING NOTE TELEMETRY PT REFUSED TO KEEP TERMITE CONTROL SERVICER ON, THIS NURSE HAS EDUCATED PT SEVERAL TIMES OF THE IMPORTANCE OF THE MONITOR WHILE ON PAIN MEDICATION. PT HAS REMOVED SEVERAL TIMES TODAY AND WILL NOT LEAVE MONITOR IN PLACE FOR EVALUATION. GEORGE PATEL.
[2020-07-03 15:12] VITALS: BP 132/83
[2020-07-03] MEDS ORDERED: HYDROcodone/APAP 5/325MG 1 TAB TABLET PO PRN (15:45)
[2020-07-03] MEDS ORDERED: HYDROmorphone PF 2 MG/ML VIAL IVP PRN (16:00)
[2020-07-03] MEDS ORDERED: HYDROmorphone PF 1 MG/ML DISP.SYRIN IVP PRN (16:15)
--- NOTE | 2020-07-03 17:10 | RAD ---
Whole body bone scan HISTORY: Sudden severe left lower back pain 25 mCi of technetium 99m MDP was administered intravenously and spot views are whole-body obtained after appropriate delay. There is activity over the pelvis which could be within a urostomy bag. There is no suspicious scintigraphic activity within the osseous structures. There is nonvisualization of the sacrum due to urinary activity. IMPRESSION: No acute findings. Electronically signed by: Angel Sims III, MD (07/03/2020 5:07 PM) [id number]
--- NOTE | 2020-07-03 17:27 | DS ---
DATE OF DISCHARGE: 07/03/2020 HOSPITAL COURSE: The patient is a 60-year-old female patient who was admitted with severe intractable back pain, mostly in the right lumbar region. The patient continued to have pain and is unable even to change position or sit up or stand. We did a CT scan of the lumbar spine, showed that she has severe degenerative disk disease without any compression fracture. 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 Candelaria and perhaps Dr. Cervantes if the MRI showed any abnormality that requires surgical intervention. PHYSICAL EXAMINATION: GENERAL: When I saw her this afternoon, she was resting in bed, moaning and groaning. She was somewhat pale, but no jaundice, cyanosis or thyromegaly. No jugular venous distention. No limb edema. VITAL SIGNS: Her heart rate is 104, blood pressure was 132/83, temperature was 98.6, respiratory rate was 20, and oxygen saturation was 96%. HEAD, EYES, EARS, NOSE AND THROAT: Showed normocephalic, atraumatic. NECK: Supple. HEART: Showed normal first and second heart sounds. No gallop, rub or murmur. CHEST: Clear to auscultation. No crepitation or rhonchi. ABDOMEN: Distended, soft, nontender. NEUROLOGIC: She was grossly intact. LABORATORY DATA: Showed a white cell count of 15,100, hemoglobin 12.4, hematocrit 38, MCV 88 and platelet count 233,000. Her chemistry showed a serum sodium 134, potassium 4.2, chloride 99, bicarbonate 29, anion gap of 6, BUN 17, creatinine 1.1, estimated GFR was 50 mL per minute. Her glucose 136, calcium was 8.7. Total bilirubin normal. AST, ALT, alkaline phosphatase are elevated. Total protein was 7, albumin was 2.7. Her urinalysis was unremarkable. Her urine culture showed growth of 10,000 colony forming units with normal genitourinary ana luisa. Her blood cultures are so far negative and showed no growth after 2 days. DISCHARGE MEDICATIONS: The patient was transferred to [facility] to continue on following medications: Trulicity 0.5 mL subcutaneously weekly, hydromorphone 1-2 mg IV every 2 hours, hydrocodone/APAP 5/325 one tablet every 6 hours, lactobacillus rhamnosus 1 capsule twice a day. She is on mesalamine 4 capsules daily, azithromycin 250 mg daily, doxepin 25 mg at bedtime, ceftriaxone 1 g IV daily, acetaminophen 1000 mg every 6 hours, linagliptin 5 mg daily, duloxetine 120 mg daily. FINAL DISCHARGE DIAGNOSES: 1. Severe intractable right lower back pain, mostly in the right side of the lumbar region. CT scan of the lumbosacral spine showed that the patient has advanced degenerative disk disease, greatest at L1, L2, L3 and L4, L5 and to a lesser degree at other levels. There is again grade 1 anterior spondylolisthesis at L4, L5, facet degenerative changes greater inferiorly of the lumbar spine. Type 2 diabetes, hypertension, irritable bowel syndrome, questionable history of Crohn's disease versus ulcerative colitis, and depression and anxiety. Plan is to transfer her to [facility], arrange for an MRI of the lumbar spine, consult Dr. Candelaria and perhaps Dr. Cervantes if there is any abnormality. Given she has persistent leukocytosis, I will add also C-reactive protein and if the bone scan showed any abnormality, we might have to consult also Infectious Disease specialist. KEELY NEGRO MD DR: EVERT/hardy JOB#: [id number] / [id number]
--- NOTE | 2020-07-03 19:30 | NUR ---
Pt was picked up by EMS to be transferred to [facility]. Pt was transported via gurney. Pt was assisted by this nurse and paramedics to [facility] via transfer sheet.
[2020-07-08] MEDS ORDERED: DULAGLUTIDE SQ SCH (09:00)
== END 2020-07-03 19:36 | disposition short-term general hospital (02) | DRG 552 ==
LOC: ER 16:35 → 1 SOUTH 20:30
PROVIDERS: ADMIT Hospitalist; ATTEND Internal Medicine
DX: M51.36 Other intervertebral disc degeneration, lumbar region (principal); M48.061 Spinal stenosis, lumbar region without neurogenic claudication; M43.16 Spondylolisthesis, lumbar region; E11.9 Type 2 diabetes mellitus without complications; K21.9 Gastro-esophageal reflux disease without esophagitis; I10 Essential (primary) hypertension; E66.9 Obesity, unspecified; G47.33 Obstructive sleep apnea (adult) (pediatric); K57.30 Diverticulosis of large intestine without perforation or abscess without bleeding; Z96.653 Presence of artificial knee joint, bilateral; F41.8 Other specified anxiety disorders; Z90.710 Acquired absence of both cervix and uterus; Z88.8 Allergy status to other drugs, medicaments and biological substances; Z68.38 Body mass index [BMI] 38.0-38.9, adult
CPT/HCPCS: 36415; 71045; 71250; 72131; 74177; 78306; 80053; 81001; 82947; 83605; 85007; 85025; 85027; 86140; 87040; 87086; 93005; 96361; 96365; 96367; 96375; 96376; A9503; J0456; J0696; J1170; J3010; J7050; Q9967; 99285-25; J7030

== ENCOUNTER → 2020-08-26 | Outpatient (CLI) | payer OTHER ==
[2020-08-05 13:14] VITALS: BP 110/71
[~2020-08-26] MED LIST changes: +DOXE25CA PO; +DULA1.5P SQ; +DULO60CA98 PO; +MESA0.372 PO; +OMEP40CA45 PO; +SAXA5TAB PO; +SPIR50TA4 PO
== END ==
LOC: LAB 12:20
PROVIDERS: ATTEND Internal Medicine Infectious Disease
DX: R78.81 Bacteremia (principal); A49.01 Methicillin susceptible Staphylococcus aureus infection, unspecified site
CPT/HCPCS: 87040

== ENCOUNTER → 2021-12-16 | Outpatient (CLI) | payer BC ==
[2020-08-05 13:14] VITALS: BP 110/71
[~2021-12-16] MED LIST changes: +IOHEXOL 240 MG/ML 50ML VIAL. ONE; -OMEP40CA45 PO; +OMEP40CA7 PO
[2021-12-16] MEDS: IOHEXOL 300 MG/ML 75 ML VIAL. IV ONE (10:18)
--- NOTE | 2021-12-16 10:34 | RAD ---
CT abdomen pelvis with contrast dated 12/16/2021. Comparison made 06/30/2020. CLINICAL INDICATION: Follow-up diverticulitis. TECHNIQUE: Contiguous axial imaging the abdomen pelvis performed after the administration of 75 cc Omnipaque 300 . One or more of the following individualized dose reduction techniques were utilized for this examinat ion: 1. Automated exposure control 2. Adjustment of the mA and/or kV according to patient size 3. Use of iterative reconstruction technique. FINDINGS: Limited images of the lung bases are clear. Heart size is upper limits of normal. No pleural or peric ardial effusion. There is a portosystemic shunt at the hepatic dome, unchanged from prior study. Liver is otherwise ho mogeneous. No biliary ductal dilatation. Gallbladder is collapsed and not well evaluated. Spleen is normal in size. Pancreas, adrenal glands and kidneys are unremarkable. No hydronephrosis. Partially opacified GI tract normal in caliber and contour. No focal bowel wall thickening. Scattered diverticula throughout the colon. The appendix is normal in caliber. No ascites or lymphadenopathy. Abdominal aorta normal in caliber. There is small duodenal diverticulum. Images of pelvis show nondistended urinary bladder. The uterus is surgically absent. No free pelvic f luid or pelvic adenopathy. There is a prominent infraumbilical ventral hernia containing only fat. IMPRESSION: 1. Diverticulosis with no evidence of acute diverticulitis. 2. There is a prominent portosystemic shunt at the hepatic dome, similar to prior study. 3. Prominent infraumbilical ventral hernia containing only fat 4. Mild fatty infiltration of the liver. 5. No acute findings. Electronically signed by: Alvaro Caceres MD (12/16/2021 10:31 AM) [id number]
== END ==
LOC: CT 09:05
PROVIDERS: ATTEND Physician Assistant
DX: K57.30 Diverticulosis of large intestine without perforation or abscess without bleeding (principal); K76.0 Fatty (change of) liver, not elsewhere classified; K43.9 Ventral hernia without obstruction or gangrene; K57.10 Diverticulosis of small intestine without perforation or abscess without bleeding; Z90.710 Acquired absence of both cervix and uterus; Z96.89 Presence of other specified functional implants
CPT/HCPCS: 74177; Q9967